=== PATIENT | male | born 1975 | race Hispanic/Latino ===

== ENCOUNTER 2021-01-12 11:16 | Inpatient (IN) | payer SELFPAY ==
[~2021-01-12] VITALS: Ht 175.3 cm; Wt 90.7 kg
[2021-01-12 12:24] LABS: BASOPHILS # (AUTO) 0.1 (0.0-0.1); BASOPHILS % 0.7 % (0.0-1.0); EOSINOPHILS # (AUTO) 0.3 (0.0-0.4); EOSINOPHILS % 2.1 % (0.0-6.0); HEMATOCRIT 50.2 % (38.2-49.6); HEMOGLOBIN 16.7 g/dL (14.0-18.0); LYMPHOCYTES # (AUTO) 3.2 (1.0-3.2); LYMPHOCYTES % 23.6 % (18.0-39.1); MEAN CORPUSCULAR HEMOGLOBIN 29.7 pg (28-32); MEAN CORPUSCULAR HGB CONC 33.3 g/dL (31-35); MEAN CORPUSCULAR VOLUME 89.3 fL (81-99); MONOCYTES # (AUTO) 1.2 (0.2-0.8); MONOCYTES % 8.9 % (4.4-11.3); NEUTROPHILS # (AUTO) 8.6 (2.1-6.9); NEUTROPHILS % 63.7 % (38.7-80.0); PLATELET COUNT 387 x10e3/uL (140-360); RED BLOOD COUNT 5.62 x10e6/uL (4.3-5.7); RED CELL DISTRIBUTION WIDTH 12.4 % (11.7-14.4)
[2021-01-12 13:33] LABS: ALBUMIN 3.4 g/dL (3.5-5.0); ALBUMIN/GLOBULIN RATIO 0.7 (0.8-2.0); ANION GAP 16.5 mmol/L (8-16); CALCIUM 9.8 mg/dL (8.4-10.2); CREATININE, SERUM 0.9 mg/dL (0.72-1.25); POTASSIUM 4.5 mmol/L (3.5-5.1)
[2021-01-12] MEDS ORDERED: Vancomycin IV 1 GM in SODIUM CHLORIDE 0.9% 250ML 250 ML IV ONE (14:00)
[2021-01-12] MEDS ORDERED: CEFEPIME 1 GM in SODIUM CHLORIDE 0.9% 50ML 50 ML IV ONE (14:30)
[2021-01-12] MEDS ORDERED: ONDANSETRON HCL INJ 2MG/ML 2ML 2 MG/ML VIAL IV PRN (14:45)
[2021-01-12] MEDS: SODIUM CHLORIDE 0.9% 1000ML 1,000 ML IV SCH ×2 (14:45→22:02)
[2021-01-12] MEDS ORDERED: NATEGLINIDE60 MG PO (15:38)
[2021-01-12] MEDS ORDERED: GLIMEPIRIDE2 MG PO (15:38)
[2021-01-12] MEDS ORDERED: GABAPENTIN100 MG PO (15:38)
[2021-01-12] MEDS ORDERED: ATORVASTATIN CA40 MG PO (15:38)
[2021-01-12 17:00] VITALS: BP 133/86
[2021-01-12] MEDS: Morphine 4mg Syringe 4 MG/ML INJ IV PRN (20:27)
[2021-01-12 20:54] LABS: CHOL/HDL RATIO 3.8 (3.9-4.7)
[2021-01-12 21:00] VITALS: BP 133/86
[2021-01-12] MEDS ORDERED: PNEUMOCOCCAL VACCINE POLYVALENT 23 MCG/0.5 ML VIAL IM SCH (21:01)
[2021-01-12] MEDS ORDERED: INFLUENZA VIRUS VAC SPLIT INJ 0.5 ML SYR IM SCH (21:01)
[2021-01-12] MEDS ORDERED: DEXTROSE 50% SYRINGE 50 ML IV PRN (21:15)
[2021-01-12] MEDS: ATORVASTATIN 40 MG TAB PO SCH (21:30)
[2021-01-12] MEDS ORDERED: GABAPENTIN 100 MG CAP PO SCH ×2 (22:00)
[2021-01-12] MEDS: CEFEPIME 1 GM in SODIUM CHLORIDE 0.9% 50ML 50 ML IV SCH (22:01)
[2021-01-13] MEDS: Vancomycin IV 1 GM in SODIUM CHLORIDE 0.9% 250ML 250 ML IV SCH ×2 (02:30→15:00)
[2021-01-13 05:04] LABS: BASOPHILS # (AUTO) 0.1 (0.0-0.1); BASOPHILS % 0.7 % (0.0-1.0); EOSINOPHILS # (AUTO) 0.3 (0.0-0.4); HEMATOCRIT 42.9 % (38.2-49.6); HEMOGLOBIN 14.5 g/dL (14.0-18.0); LYMPHOCYTES # (AUTO) 3.2 (1.0-3.2); LYMPHOCYTES % 27.8 % (18.0-39.1); MEAN CORPUSCULAR HEMOGLOBIN 29.6 pg (28-32); MEAN CORPUSCULAR HGB CONC 33.8 g/dL (31-35); MEAN CORPUSCULAR VOLUME 87.6 fL (81-99); MONOCYTES # (AUTO) 1.3 (0.2-0.8); MONOCYTES % 11.4 % (4.4-11.3); NEUTROPHILS # (AUTO) 6.4 (2.1-6.9); NEUTROPHILS % 56.1 % (38.7-80.0); PLATELET COUNT 362 x10e3/uL (140-360); RED CELL DISTRIBUTION WIDTH 12.4 % (11.7-14.4)
[2021-01-13] MEDS: CEFEPIME 1 GM in SODIUM CHLORIDE 0.9% 50ML 50 ML IV SCH ×3 (05:15→21:48)
[2021-01-13] MEDS: Morphine 4mg Syringe 4 MG/ML INJ IV PRN ×3 (05:45→20:28)
[2021-01-13] MEDS: GABAPENTIN 100 MG CAP PO SCH ×3 (05:54→21:48)
[2021-01-13] MEDS: SODIUM CHLORIDE 0.9% 1000ML 1,000 ML IV SCH ×3 (05:55→21:49)
[2021-01-13 07:15] VITALS: BP 112/64
[2021-01-13] MEDS: INSULIN REGULAR, HUMAN 100 UNIT/1 ML SQ SCH ×4 (08:15→21:00)
[2021-01-13 11:16] VITALS: BP 117/68
[2021-01-13 15:36] VITALS: BP 126/70
[2021-01-13 19:45] VITALS: BP 119/70
[2021-01-13] MEDS: ATORVASTATIN 40 MG TAB PO SCH (20:44)
[2021-01-13 21:00] VITALS: BP 119/70
[2021-01-13 23:53] VITALS: BP 102/62
[2021-01-14] MEDS: Vancomycin IV 1 GM in SODIUM CHLORIDE 0.9% 250ML 250 ML IV SCH ×2 (01:58→14:00)
[2021-01-14 05:41] VITALS: BP 116/66
[2021-01-14] MEDS: CEFEPIME 1 GM in SODIUM CHLORIDE 0.9% 50ML 50 ML IV SCH (05:59)
[2021-01-14] MEDS: SODIUM CHLORIDE 0.9% 1000ML 1,000 ML IV SCH ×2 (06:01→14:45)
[2021-01-14] MEDS: GABAPENTIN 100 MG CAP PO SCH ×2 (06:01→14:57)
[2021-01-14 07:25] VITALS: BP 125/72
[2021-01-14 07:29] LABS: BASOPHILS # (AUTO) 0.1 (0.0-0.1); BASOPHILS % 0.9 % (0.0-1.0); EOSINOPHILS # (AUTO) 0.4 (0.0-0.4); EOSINOPHILS % 4.9 % (0.0-6.0); HEMOGLOBIN 14.1 g/dL (14.0-18.0); LYMPHOCYTES # (AUTO) 2.9 (1.0-3.2); LYMPHOCYTES % 32.3 % (18.0-39.1); MEAN CORPUSCULAR HEMOGLOBIN 29.3 pg (28-32); MEAN CORPUSCULAR HGB CONC 33.6 g/dL (31-35); MEAN CORPUSCULAR VOLUME 87.1 fL (81-99); MONOCYTES # (AUTO) 0.9 (0.2-0.8); MONOCYTES % 9.7 % (4.4-11.3); NEUTROPHILS # (AUTO) 4.6 (2.1-6.9); NEUTROPHILS % 50.9 % (38.7-80.0); PLATELET COUNT 381 x10e3/uL (140-360); RED BLOOD COUNT 4.82 x10e6/uL (4.3-5.7); RED CELL DISTRIBUTION WIDTH 12.2 % (11.7-14.4)
[2021-01-14] MEDS: INSULIN REGULAR, HUMAN 100 UNIT/1 ML SQ SCH ×2 (07:50→11:31)
[2021-01-14 07:53] LABS: CALCIUM 8.2 mg/dL (8.4-10.2); CREATININE, SERUM 0.7 mg/dL (0.72-1.25)
[2021-01-14 09:00] VITALS: BP 125/72
[2021-01-14] MEDS ORDERED: SODIUM CHLORIDE 0.9% 250ML 250 ML ONE (09:28)
[2021-01-14 11:26] VITALS: BP 112/71
[2021-01-14 15:20] VITALS: BP 120/80
[2021-01-14] MEDS ORDERED: CEFUROXIME500 MG PO (16:40)
[2021-01-14] MEDS ORDERED: CLINDAMYCIN HC150 MG PO (16:40)
== END 2021-01-14 17:53 | disposition home or self-care (01) | DRG 638 ==
LOC: ER 12:19 → ERHOLD 15:00 → MED/SURG2 16:01
PROVIDERS: ADMIT Internal Medicine; ATTEND Internal Medicine
PROC: 0H9MXZZ Drainage of Right Foot Skin, External Approach (ICD-10-PCS; principal; 2021-01-12)
DX: E11.628 Type 2 diabetes mellitus with other skin complications (principal); L03.115 Cellulitis of right lower limb; E11.65 Type 2 diabetes mellitus with hyperglycemia; E11.40 Type 2 diabetes mellitus with diabetic neuropathy, unspecified; Z79.4 Long term (current) use of insulin; Z20.822 Contact with and (suspected) exposure to COVID-19; E66.9 Obesity, unspecified; Z68.29 Body mass index [BMI] 29.0-29.9, adult; E78.5 Hyperlipidemia, unspecified; Z89.412 Acquired absence of left great toe
CPT/HCPCS: 36415; 80048; 80053; 80061; 80202; 82948; 83036; 83605; 85025; 87040; 87071; 87075; 87205; 96372; 99284; J0692; J1817; J2270; J3370; J7030; J7050; U0002